=== PATIENT | female | born 1995 | race Caucasian/White ===

== ENCOUNTER 2020-07-05 02:15 | Emergency (ER) | payer OTHER ==
[~2020-07-05] VITALS: Ht 162.6 cm; Wt 45.4 kg
--- NOTE | 2020-07-05 02:25 | NUR ---
ED Nurse Note: Patient walked into ED c/o generalized weakness. states that she was recently diagnosed with a UTI earlier today at a urgent care and was prescribed medications. patient reports of taking medications at around 1700 however at midnight today complains of generalized weakness. patient does present with a fever of 101.2 oral. patient placed in an isolation room. will continue to monitor
[2020-07-05 02:26] VITALS: BP 116/69
[2020-07-05] MEDS ORDERED: CIPROFLOXACIN500 M2 ORAL (02:37)
--- NOTE | 2020-07-05 02:40 | NUR ---
ER DISCHARGE NOTE: Patient is cleared to be discharged per ERMD, pt is aox4, on room air. pt was given dc and prescription instructions, pt was able to verbalize understanding, pt id band removed without complications. pt is able to ambulate with steady gait. pt took all belongings. per dr. marin, patient ok to go with current temp and heart rate, patient agrees wt advice, she states that she will take tylenol at home.
[2020-07-05 02:41] VITALS: BP 120/65
--- NOTE | 2020-07-05 03:30 | Emergency Room Report ---
History of Present Illness General Chief Complaint: Female Urogenital Problems Source: Patient Present Illness HPI 25-year-old otherwise healthy female here for evaluation of fever and left back pain. Patient said that she was having dysuria earlier today and went to an urgent care where she was diagnosed with urinary tract infection. She says that she gave a urine sample and he said "that it looks very infected." She was given a prescription for Macrobid. She has taken 2 doses of the Macrobid and said that earlier tonight she spiked a fever and then started having left flank pain. At this time the patient is refusing to give a urine sample, blood work, or wanting any medications in the emergency department "because I got screwed with a huge bill last time I came to the hospital." Denies chills, chest pain, shortness of breath, other back pain, abdominal pain, nausea, vomiting, diarrhea. Allergies: Coded Allergies: No Known Allergies (Unverified , 07/05/20) COVID-19 Screening Contact w/high risk pt: No Experienced COVID-19 symptoms?: Yes COVID-19 Testing performed DIRECTOR BUSINESS DEVELOPMENT: No Patient History Last Menstrual Period: may 2020 Nursing Documentation-[facility] Past Medical History: No Stated History Review of Systems All Other Systems: negative except mentioned in HPI Physical Exam Vital Signs Date Time Temp Pulse Resp B/P (MAP) Pulse Ox O2 Delivery O2 Flow Rate FiO2 07/05/20 02:18 101.1 120 18 116/69 (85) 97 Room Air Sp02 EP Interpretation: reviewed, normal General Appearance: no apparent distress, alert, non-toxic Head: normocephalic, atraumatic Eyes: bilateral eye normal inspection, bilateral eye PERRL ENT: hearing grossly normal, normal pharynx, no angioedema, normal voice Neck: full range of motion, supple/symm/no masses Respiratory: chest non-tender, lungs clear, normal breath sounds, speaking full sentences Cardiovascular #1: regular rate, rhythm, no edema Cardiovascular #2: 2+ carotid (R), 2+ carotid (L), 2+ radial (R), 2+ radial (L) , 2+ dorsalis pedis (R), 2+ dorsalis pedis (L) Gastrointestinal: normal bowel sounds, non tender, soft, non-distended, no guarding, no rebound Rectal: deferred Genitourinary: normal inspection, other - Mild left CVA tenderness. No right CVA tenderness. No midline back pain Musculoskeletal: back normal, normal range of motion, calf tenderness, gait/ station normal, non-tender Neurologic: alert, motor strength/tone normal, sensory intact, responsive, speech normal Psychiatric: judgement/insight normal, memory normal, mood/affect normal, no suicidal/homicidal ideation Lymphatic: no adenopathy Medical Decision Making Diagnostic Impression: Primary Impression: Pyelonephritis ER Course 25-year-old female here with fever, dysuria, left flank pain. Patient was refusing any lab work or blood draws or medications in the emergency department due to worry for financial cost. The patient was told by myself and the triage nurse that we could not fully evaluate the patient and treat her symptoms unless we get lab work of her own. Patient however came with paperwork from the urgent care center which did in fact show that the patient had a urinary tract infection. In the setting of new fever and left flank pain, highly concerning for pyelonephritis. However patient was smiling and talking in no acute distress whatsoever and appeared nontoxic. She did have a fever on arrival but said that she was going to go home and take Tylenol. She was given a prescription for ciprofloxacin to treat the pyelonephritis and told to come back to the emergency department if she has any worsening pain, fevers, chills, abdominal pain, nausea, vomiting, or other systemic signs of worsening illness. She expressed understanding and was discharged. Last Vital Signs Date Time Temp Pulse Resp B/P (MAP) Pulse Ox O2 Delivery O2 Flow Rate FiO2 07/05/20 02:41 100.9 115 16 120/65 97 Room Air Disposition: HOME, SELF-CARE Condition: Stable Scripts Ciprofloxacin Hcl* (CIPROFLOXACIN HCL*) 500 Mg Tablet 500 MG ORAL Q12H, #14 TAB 0 Refills Prov: Benedicto Jones M.D. 07/05/20 Referrals: [facility] Patient Instructions: Pyelonephritis, Adult Additional Instructions: If your symptoms get worse please return to the emergency department. Please follow-up with your primary care doctor in the next 1 to 3 days to discuss this emergency department visit and for reevaluation. If you have any new or worsening symptoms please return to the emergency department for reevaluation. Benedicto Jones M.D. Jul 05, 2020 03:30
== END 2020-07-05 02:40 | disposition home or self-care (01) ==
LOC: EMR 02:40
DX: N12 Tubulo-interstitial nephritis, not specified as acute or chronic (principal); M54.9 Dorsalgia, unspecified
CPT/HCPCS: 99282